=== PATIENT | male | born 1960 | race African-American/Black ===

== ENCOUNTER 2022-10-06 11:37 | Inpatient (IN) | payer OTHER ==
[2022-10-06 12:13] VITALS: BMI 22.8
[2022-10-06] MEDS ORDERED: MAGNESIUM HYDROX 2400MG/30ML ORAL SUSPENSION 30 ML CUP PO PRN (12:41)
[2022-10-06] MEDS ORDERED: ONDANSETRON *ODT* 4 MG TABLET SL PRN (12:41)
[2022-10-06] MEDS ORDERED: IBUPROFEN 600 MG TABLET (FP) PO PRN (12:41)
[2022-10-06] MEDS ORDERED: NICOTINE 10 MG CARTRIDGE (INHALER) IH PRN (12:41)
[2022-10-06] MEDS ORDERED: BISMUTH SUBSALICYLATE 262 MG/15 ML BTL PO PRN (12:41)
[2022-10-06] MEDS ORDERED: NICOTINE POLACRILEX 2 MG GUM BUC PRN (12:41)
[2022-10-06] MEDS ORDERED: IBUPROFEN 400 MG TABLET (FP) PO PRN (12:41)
[2022-10-06] MEDS ORDERED: BENZOCAINE/MENTHOL (CHLORASEPTIC ) LOZENGE MM PRN (12:41)
[2022-10-06] MEDS ORDERED: ACETAMINOPHEN 325 MG TABLET (FP) PO PRN ×2 (12:41)
[2022-10-06] MEDS ORDERED: NALOXONE HCL (KLOXXADO) 8 MG SPRAY NS PRN (12:41)
[2022-10-06] MEDS ORDERED: LOPERAMIDE HCL 2 MG CAPSULE PO PRN (12:41)
[2022-10-06] MEDS ORDERED: MAG HYDROX/AL HYDROX/SIMETH 30 ML UNIT-DOSE CUP PO PRN (12:41)
[2022-10-06] MEDS ORDERED: DICYCLOMINE HCL 10 MG CAPSULE PO PRN (12:41)
[2022-10-06] MEDS ORDERED: POLYETHYLENE GLYCOL (HEALTHYLAX) 3350 17 GM PACKET PO PRN (12:41)
[2022-10-06] MEDS: PRENATAL VITAMINS W/ FOLIC ACID TABLET (FP) PO SCH (15:00)
[2022-10-06 18:37] LABS: BLOOD UREA NITROGEN 9.1 mg/dL (7-18); CALCIUM 8.4 mg/dL (8.5-10.1)
[2022-10-06 18:38] LABS: ALBUMIN 3.1 g/dl (3.4-5.0)
[2022-10-06 18:39] LABS: HEMATOCRIT 37.7 % (35.4-49); HEMOGLOBIN 12.6 GM/dL (11.7-16.9); MCH 30.8 pg (25.7-33.7); MCHC 33.4 g/dl (32.0-35.9); MEAN CELL VOLUME 92.1 fl (80-96); MEAN PLT VOLUME 7.2 fl (7.5-11.1); PLATELET COUNT 327 10^3/uL (134-434); RDW 13.2 % (11.9-15.9); WHITE BLOOD COUNT 5.8 K/mm3 (4.0-10.0)
[2022-10-06 18:40] LABS: CREATININE 0.7 mg/dL (0.55-1.3)
[2022-10-06 18:41] LABS: BILIRUBIN,TOTAL 0.3 mg/dL (0.2-1); TOT PROT 6.2 g/dl (6.4-8.2)
[2022-10-06] MEDS: THIAMINE HCL 100 MG TABLET (FP) PO SCH (23:34)
[2022-10-06] MEDS: MELATONIN 5 MG TABLETS PO SCH (23:34)
[2022-10-07] MEDS: hydrOXYzine PAMOATE 25 MG CAPSULE (FP) PO PRN (07:34)
[2022-10-07] MEDS ORDERED: methaDONE HCL 10 MG TABLET (FOR DETOX USE ONLY) PO ONE (09:30)
[2022-10-07] MEDS: METHOCARBAMOL 500 MG TABLET PO PRN (10:33)
[2022-10-07] MEDS: PRENATAL VITAMINS W/ FOLIC ACID TABLET (FP) PO SCH (10:33)
[2022-10-07] MEDS: diazePAM 5 MG TABLET PO PRN ×2 (10:33→22:56)
[2022-10-07] MEDS: cloNIDine HCL 0.1 MG TABLET PO PRN ×2 (13:26→22:56)
[2022-10-07] MEDS: THIAMINE HCL 100 MG TABLET (FP) PO SCH (22:56)
[2022-10-07] MEDS: MELATONIN 5 MG TABLETS PO SCH (22:58)
[2022-10-08] MEDS: PRENATAL VITAMINS W/ FOLIC ACID TABLET (FP) PO SCH (10:38)
[2022-10-08] MEDS: cloNIDine HCL 0.1 MG TABLET PO PRN (10:39)
[2022-10-08] MEDS: diazePAM 5 MG TABLET PO PRN (10:39)
[2022-10-08] MEDS: METHOCARBAMOL 500 MG TABLET PO PRN (10:39)
[2022-10-08] MEDS: MELATONIN 5 MG TABLETS PO SCH (22:24)
[2022-10-08] MEDS: THIAMINE HCL 100 MG TABLET (FP) PO SCH (22:24)
[2022-10-09] MEDS ORDERED: methaDONE HCL 10 MG TABLET (FOR DETOX USE ONLY) PO ONE (10:00)
[2022-10-09] MEDS: PRENATAL VITAMINS W/ FOLIC ACID TABLET (FP) PO SCH (10:05)
[2022-10-09] MEDS: diazePAM 5 MG TABLET PO PRN ×2 (10:05→22:47)
[2022-10-09] MEDS: hydrOXYzine PAMOATE 25 MG CAPSULE (FP) PO PRN (10:06)
[2022-10-09] MEDS: METHOCARBAMOL 500 MG TABLET PO PRN ×2 (10:06→22:46)
[2022-10-09] MEDS: THIAMINE HCL 100 MG TABLET (FP) PO SCH (22:46)
[2022-10-09] MEDS: MELATONIN 5 MG TABLETS PO SCH (22:47)
[2022-10-10] MEDS: METHOCARBAMOL 500 MG TABLET PO PRN (10:15)
[2022-10-10] MEDS: hydrOXYzine PAMOATE 25 MG CAPSULE (FP) PO PRN (10:15)
[2022-10-10] MEDS: PRENATAL VITAMINS W/ FOLIC ACID TABLET (FP) PO SCH (10:15)
[2022-10-10] MEDS: MELATONIN 5 MG TABLETS PO SCH (22:26)
[2022-10-10] MEDS: THIAMINE HCL 100 MG TABLET (FP) PO SCH (22:26)
[2022-10-11] MEDS ORDERED: methaDONE HCL 10 MG TABLET (FOR DETOX USE ONLY) PO ONE (10:00)
[2022-10-11] MEDS: PRENATAL VITAMINS W/ FOLIC ACID TABLET (FP) PO SCH (10:40)
[2022-10-11] MEDS: METHOCARBAMOL 500 MG TABLET PO PRN (10:40)
[2022-10-11] MEDS: hydrOXYzine PAMOATE 25 MG CAPSULE (FP) PO PRN ×2 (10:41→22:22)
[2022-10-11] MEDS: MELATONIN 5 MG TABLETS PO SCH (22:22)
[2022-10-11] MEDS: THIAMINE HCL 100 MG TABLET (FP) PO SCH (22:23)
[2022-10-12 09:17] VITALS: BP 148/72; PULSE 99; RESP 16; TEMP 97.8
[2022-10-12] MEDS: PRENATAL VITAMINS W/ FOLIC ACID TABLET (FP) PO SCH (09:31)
== END 2022-10-12 12:30 | disposition other institution (70) | DRG 773 ==
LOC: YASAS 11:37 → Y6N 13:54 → UNDOADMIN 13:54
PROVIDERS: ADMIT Allergy & Immunology; ATTEND Surgery
PROC: HZ2ZZZZ Detoxification Services for Substance Abuse Treatment (ICD-10-PCS; principal; 2022-10-06)
DX: F11.23 Opioid dependence with withdrawal (principal); F14.20 Cocaine dependence, uncomplicated; F12.20 Cannabis dependence, uncomplicated; F17.210 Nicotine dependence, cigarettes, uncomplicated; F19.280 Other psychoactive substance dependence with psychoactive substance-induced anxiety disorder; F41.9 Anxiety disorder, unspecified; F32.A Depression, unspecified; G47.00 Insomnia, unspecified; I10 Essential (primary) hypertension; R73.03 Prediabetes; Z28.310 Unvaccinated for COVID-19; Z28.21 Immunization not carried out because of patient refusal
CPT/HCPCS: 36415; 80053; 82947; 83036; 85027; 86780; 87811; C9803-CS; U0003; U0005

== ENCOUNTER 2022-10-12 12:22 | Inpatient (IN) | payer OTHER ==
[2022-10-12] MEDS ORDERED: P-EPHED 60MG/TRIPROLIDI 2.5MG TABLET PO PRN (13:27)
[2022-10-12] MEDS ORDERED: IBUPROFEN 400 MG TABLET (FP) PO PRN (13:27)
[2022-10-12] MEDS ORDERED: MAGNESIUM HYDROX 2400MG/30ML ORAL SUSPENSION 30 ML CUP PO PRN (13:27)
[2022-10-12] MEDS ORDERED: MAG HYDROX/AL HYDROX/SIMETH 30 ML UNIT-DOSE CUP PO PRN (13:27)
[2022-10-12] MEDS ORDERED: ACETAMINOPHEN 325 MG TABLET (FP) PO PRN (13:27)
[2022-10-12] MEDS ORDERED: MAGNESIUM CITRATE 300 ML BOTTLE PO PRN (13:27)
[2022-10-12] MEDS ORDERED: LOPERAMIDE HCL 2 MG CAPSULE PO PRN (13:27)
[2022-10-12] MEDS ORDERED: guaiFENesin 200 MG/10 ML 10 ML UNIT-DOSE CUPS PO PRN (13:27)
[2022-10-12] MEDS ORDERED: BENZOCAINE/MENTHOL (CHLORASEPTIC ) LOZENGE MM PRN (13:27)
[2022-10-12] MEDS: MELATONIN 5 MG TABLETS PO SCH (21:21)
[2022-10-12] MEDS: hydrOXYzine PAMOATE 25 MG CAPSULE (FP) PO PRN (21:21)
[2022-10-12] MEDS: THIAMINE HCL 100 MG TABLET (FP) PO SCH (21:22)
[2022-10-13] MEDS: NICOTINE 7 MG/24 HOURS TOPICAL PATCH TD SCH (10:03)
[2022-10-13] MEDS: PRENATAL VITAMINS W/ FOLIC ACID TABLET (FP) PO SCH (10:03)
[2022-10-13 13:37] LABS: HIV INTERPRETATION NEGATIVE (NEGATIVE)
[2022-10-13] MEDS: NICOTINE 10 MG CARTRIDGE (INHALER) IH PRN (15:49)
[2022-10-13] MEDS: THIAMINE HCL 100 MG TABLET (FP) PO SCH (21:27)
[2022-10-13] MEDS: MELATONIN 5 MG TABLETS PO SCH (21:27)
[2022-10-13] MEDS: hydrOXYzine PAMOATE 25 MG CAPSULE (FP) PO PRN (21:28)
[2022-10-14] MEDS: NICOTINE 7 MG/24 HOURS TOPICAL PATCH TD SCH (09:32)
[2022-10-14] MEDS: PRENATAL VITAMINS W/ FOLIC ACID TABLET (FP) PO SCH (09:32)
[2022-10-14] MEDS: NICOTINE 10 MG CARTRIDGE (INHALER) IH PRN (09:33)
[2022-10-14] MEDS ORDERED: SALICYLIC ACID 1 APPLIC BOTTLE TP ONE (11:17)
[2022-10-14] MEDS: THIAMINE HCL 100 MG TABLET (FP) PO SCH (21:38)
[2022-10-14] MEDS: MELATONIN 5 MG TABLETS PO SCH (21:38)
[2022-10-14] MEDS: hydrOXYzine PAMOATE 25 MG CAPSULE (FP) PO PRN (21:39)
[2022-10-14] MEDS: TOLNAFTATE 1% CREAM 15 GM TUBE TP SCH (21:41)
[2022-10-14] MEDS ORDERED: TOLNAFTATE 1% CREAM 15 GM TUBE TP SCH (22:00)
[2022-10-15] MEDS: NICOTINE 7 MG/24 HOURS TOPICAL PATCH TD SCH (10:13)
[2022-10-15] MEDS: PRENATAL VITAMINS W/ FOLIC ACID TABLET (FP) PO SCH (10:14)
[2022-10-15] MEDS: TOLNAFTATE 1% CREAM 15 GM TUBE TP SCH ×2 (10:14→21:32)
[2022-10-15] MEDS: MELATONIN 5 MG TABLETS PO SCH (21:32)
[2022-10-15] MEDS: THIAMINE HCL 100 MG TABLET (FP) PO SCH (21:32)
[2022-10-15] MEDS: hydrOXYzine PAMOATE 25 MG CAPSULE (FP) PO PRN (21:33)
[2022-10-16] MEDS: PRENATAL VITAMINS W/ FOLIC ACID TABLET (FP) PO SCH (09:44)
[2022-10-16] MEDS: TOLNAFTATE 1% CREAM 15 GM TUBE TP SCH ×2 (09:44→21:22)
[2022-10-16] MEDS: NICOTINE 7 MG/24 HOURS TOPICAL PATCH TD SCH (09:45)
[2022-10-16] MEDS: hydrOXYzine PAMOATE 25 MG CAPSULE (FP) PO PRN (21:21)
[2022-10-16] MEDS: THIAMINE HCL 100 MG TABLET (FP) PO SCH (21:21)
[2022-10-16] MEDS: MELATONIN 5 MG TABLETS PO SCH (21:21)
[2022-10-17] MEDS: TOLNAFTATE 1% CREAM 15 GM TUBE TP SCH ×2 (09:56→21:32)
[2022-10-17] MEDS: PRENATAL VITAMINS W/ FOLIC ACID TABLET (FP) PO SCH (09:56)
[2022-10-17] MEDS: NICOTINE 7 MG/24 HOURS TOPICAL PATCH TD SCH (09:56)
[2022-10-17] MEDS ORDERED: NICOTINE 7 MG/24 HOURS TOPICAL PATCH TD PRN (12:12)
[2022-10-17] MEDS: MELATONIN 5 MG TABLETS PO SCH (21:31)
[2022-10-17] MEDS: THIAMINE HCL 100 MG TABLET (FP) PO SCH (21:31)
[2022-10-17] MEDS: hydrOXYzine PAMOATE 25 MG CAPSULE (FP) PO PRN (21:32)
[2022-10-18] MEDS: PRENATAL VITAMINS W/ FOLIC ACID TABLET (FP) PO SCH (10:22)
[2022-10-18] MEDS: TOLNAFTATE 1% CREAM 15 GM TUBE TP SCH ×2 (10:23→21:24)
[2022-10-18] MEDS: MELATONIN 5 MG TABLETS PO SCH (21:24)
[2022-10-18] MEDS: THIAMINE HCL 100 MG TABLET (FP) PO SCH (21:24)
[2022-10-19] MEDS: TOLNAFTATE 1% CREAM 15 GM TUBE TP SCH ×2 (10:21→21:09)
[2022-10-19] MEDS: PRENATAL VITAMINS W/ FOLIC ACID TABLET (FP) PO SCH (10:21)
[2022-10-19] MEDS ORDERED: SALICYLIC ACID 1 APPLIC BOTTLE TP PRN (15:06)
[2022-10-19] MEDS: MELATONIN 5 MG TABLETS PO SCH (21:09)
[2022-10-19] MEDS: THIAMINE HCL 100 MG TABLET (FP) PO SCH (21:09)
[2022-10-19] MEDS: hydrOXYzine PAMOATE 25 MG CAPSULE (FP) PO PRN (21:10)
[2022-10-20] MEDS: PRENATAL VITAMINS W/ FOLIC ACID TABLET (FP) PO SCH (10:20)
[2022-10-20] MEDS: TOLNAFTATE 1% CREAM 15 GM TUBE TP SCH ×2 (10:21→21:20)
[2022-10-20] MEDS: THIAMINE HCL 100 MG TABLET (FP) PO SCH (21:20)
[2022-10-20] MEDS: MELATONIN 5 MG TABLETS PO SCH (21:20)
[2022-10-20] MEDS: hydrOXYzine PAMOATE 25 MG CAPSULE (FP) PO PRN (21:20)
[2022-10-21] MEDS: TOLNAFTATE 1% CREAM 15 GM TUBE TP SCH ×2 (10:00→21:24)
[2022-10-21] MEDS: PRENATAL VITAMINS W/ FOLIC ACID TABLET (FP) PO SCH (10:00)
[2022-10-21] MEDS: THIAMINE HCL 100 MG TABLET (FP) PO SCH (21:24)
[2022-10-21] MEDS: MELATONIN 5 MG TABLETS PO SCH (21:24)
[2022-10-21] MEDS: hydrOXYzine PAMOATE 25 MG CAPSULE (FP) PO PRN (21:25)
[2022-10-22] MEDS: TOLNAFTATE 1% CREAM 15 GM TUBE TP SCH ×2 (09:01→21:04)
[2022-10-22] MEDS: PRENATAL VITAMINS W/ FOLIC ACID TABLET (FP) PO SCH (09:01)
[2022-10-22 10:24] VITALS: RESP 18
[2022-10-22] MEDS: MELATONIN 5 MG TABLETS PO SCH (21:04)
[2022-10-22] MEDS: THIAMINE HCL 100 MG TABLET (FP) PO SCH (21:04)
[2022-10-22] MEDS: hydrOXYzine PAMOATE 25 MG CAPSULE (FP) PO PRN (21:05)
[2022-10-23 06:34] VITALS: BP 120/69; PULSE 98; TEMP 97.3
[2022-10-23] MEDS: TOLNAFTATE 1% CREAM 15 GM TUBE TP SCH (09:15)
[2022-10-23] MEDS: PRENATAL VITAMINS W/ FOLIC ACID TABLET (FP) PO SCH (09:15)
== END 2022-10-23 09:23 | disposition home or self-care (01) | DRG 772 ==
LOC: YASAS 12:22 → Y3E 12:25
PROVIDERS: ADMIT Allergy & Immunology; ATTEND Psychiatry & Neurology Pain Medicine
PROC: HZ42ZZZ Group Counseling for Substance Abuse Treatment, Cognitive-Behavioral (ICD-10-PCS; principal; 2022-10-12)
DX: F11.20 Opioid dependence, uncomplicated (principal); F14.20 Cocaine dependence, uncomplicated; F12.20 Cannabis dependence, uncomplicated; F17.210 Nicotine dependence, cigarettes, uncomplicated; F19.280 Other psychoactive substance dependence with psychoactive substance-induced anxiety disorder; F32.A Depression, unspecified; F41.9 Anxiety disorder, unspecified; G47.00 Insomnia, unspecified; L84 Corns and callosities; B35.1 Tinea unguium; R73.03 Prediabetes
CPT/HCPCS: 36415; 87389